=== PATIENT | male | born 1955 | race Two or more races ===

== ENCOUNTER 2017-03-06 22:33 | Emergency (ER) | payer MEDICARE, OTHER ==
[~2017-03-06] VITALS: Ht 185.4 cm; Wt 106.1 kg
[2017-03-06 22:33] VITALS: BP 158/68
== END 2017-03-06 23:41 | disposition home or self-care (01) ==
LOC: ER 22:34 → EDBD 22:34 → ER 23:41
DX: S93.402A Sprain of unspecified ligament of left ankle, initial encounter (principal); S16.1XXA Strain of muscle, fascia and tendon at neck level, initial encounter; Z88.6 Allergy status to analgesic agent; V19.69XA Unspecified pedal cyclist injured in collision with other motor vehicles in traffic accident, initial encounter; Y93.89 Activity, other specified; Y92.89 Other specified places as the place of occurrence of the external cause; Y99.9 Unspecified external cause status
CPT/HCPCS: 73610; 99284; A4606; Z7610